=== PATIENT | male | born 1970 | race Caucasian/White ===

== ENCOUNTER 2017-09-08 08:54 | Emergency (ER) | payer MEDICAID, OTHER ==
[2017-09-08] MEDS: KETOROLAC 60 MG INJ IM (09:42)
== END 2017-09-08 11:12 | disposition home or self-care (01) ==
LOC: FTE 08:54
DX: M25.531 Pain in right wrist (principal)
CPT/HCPCS: 29125; 73110-RT; 96372; 99284-25

== ENCOUNTER 2018-08-20 08:48 | Emergency (ER) | payer SELFPAY, MEDICAID ==
[2018-08-20] MEDS: HYDROCODONE/APAP (5/325) TAB PO (09:15)
[2018-08-20 09:26] LABS: ADD MAN DIFF? NO
[2018-08-20 09:30] LABS: BASOPHIL # 0.1 10^3/ul (0.0-0.1); BASOPHILS % 0.7 % (0.0-2.0); EOSINOPHILS # 0.2 10^3/ul (0.0-0.5); EOSINOPHILS % 1.7 % (0.0-7.0); HEMATOCRIT 44.2 % (42.0-52.0); HEMOGLOBIN 15.9 g/dl (14.0-18.0); LYMPHOCYTES # 1.3 10^3/ul (0.8-2.9); LYMPHOCYTES % 12.6 % (15.0-51.0); MEAN CORPUSCULAR HEMOGLOBIN 32.1 pg (29.0-33.0); MEAN CORPUSCULAR VOLUME 89.1 fl (82.0-101.0); MEAN PLATELET VOLUME 9.7 fl (7.4-10.4); MONOCYTE # 0.7 10^3/ul (0.3-0.9); NEUTROPHIL # 7.9 10^3/ul (1.6-7.5); NEUTROPHILS % 77.1 % (39.0-77.0); PLATELET COUNT 228 10^3/UL (140-415); RED BLOOD COUNT 4.96 10^6/ul (4.70-6.10); RED CELL DISTRIBUTION WIDTH 11.9 % (11.5-14.5)
[2018-08-20 09:30] LABS: WHITE BLOOD COUNT 10.3 10^3/ul (4.8-10.8)
[2018-08-20 09:52] LABS: ALANINE AMINOTRANSFERASE 89 IU/L (13-69); ALBUMIN 4.6 g/dl (3.3-4.9); ALBUMIN/GLOBULIN RATIO 1.43; ALKALINE PHOSPHATASE 81 IU/L (42-121); ANION GAP 11 (5-13); ASPARTATE AMINO TRANSFERASE 73 IU/L (15-46); BILIRUBIN,INDIRECT 1.2 mg/dl (0-1.1); BILIRUBIN,TOTAL 1.2 mg/dl (0.2-1.3); BLOOD UREA NITROGEN 12 mg/dl (7-20); C-REACTIVE PROTEIN 2.9 mg/dl (0.0-0.9); CALCIUM 9.5 mg/dl (8.4-10.2); CARBON DIOXIDE 28 mmol/L (21-31); CHLORIDE 100 mmol/L (97-110); CREATININE 0.78 mg/dl (0.61-1.24); Estimated GFR > 60 mL/min (>60); GLUCOSE 142 mg/dl (70-220); POTASSIUM 4.3 mmol/L (3.5-5.1); SODIUM 139 mmol/L (135-144); TOTAL PROTEIN 7.8 g/dl (6.1-8.1)
[2018-08-20 11:04] LABS: ERYTHROCYTE SEDIMENTATION RATE 2 mm/Hr (0-15)
== END 2018-08-20 10:55 | disposition home or self-care (01) ==
LOC: FTE 08:48
DX: M79.89 Other specified soft tissue disorders (principal); M10.9 Gout, unspecified
CPT/HCPCS: 73610; 73610-RT; 80053; 84560; 85025; 85651; 86140; 99284-25

== ENCOUNTER 2018-08-23 09:53 | Emergency (ER) | payer SELFPAY | END 2018-08-23 11:01 | disposition home or self-care (01) | LOC: E/R 09:53 | DX: M10.9 Gout, unspecified (principal) | CPT/HCPCS: 99283 ==